=== PATIENT | male | born 1930 | race Caucasian/White ===

== ENCOUNTER 2016-11-06 20:44 | Inpatient (IN) | payer MEDICARE, BC ==
[~2016-11-06 20:44] MED LIST: SIMVASTATIN 10 MG TAB PO SCH
[2016-11-06 21:18] LABS: AUTOMATED BASOPHIL 0.9 % (0-2); AUTOMATED EOSINOPHIL 2.1 % (0-5); AUTOMATED LYMPH 10.8 % (17-44); AUTOMATED MONOCYTE 6.2 % (3-10); MPV 9.6 fL (7.4-10.4)
[2016-11-06 21:27] LABS: BLOOD UREA NITROGEN 24 MG/DL (9-20); CALC CORRECTED 9.4 MG/DL (8.4-10.2); CALCIUM 9.2 MG/DL (8.4-10.2); CALCULATED OSMOLALITY 278 MOs/Kg (270-290); CHLORIDE 106 mEq/L (98-107); GLUCOSE 122 MG/DL (70-99); SODIUM LEVEL 142 mEq/L (137-146); TOTAL PROTEIN 6.9 G/DL (6.3-8.2)
[2016-11-06 21:32] LABS: PARTIAL THROMB. TIME 27.2 SEC (22-35); PT-INR 1.2
[2016-11-06] MEDS ORDERED: NS 1,000 ML IV ONE (21:45)
--- NOTE | 2016-11-06 21:47 | EDPRACDOC ---
- General Information Chief Complaint: Chest Pain Stated Complaint: HEART ACTING UP ELEVATED BP SHOB NAUSEATED Time Seen by Provider: 11/06/16 21:39 Information Source: Patient Mode Of Arrival: Car Home Medications: Home Medications Ibuprofen Oral Suspension [Motrin] 200 mg PO HS 02/05/13 Lisinopril [Zestril] 20 mg PO BID 02/05/13 Nitroglycerin [Nitrostat] 0.3 mg SL Q5MX3 PRN 02/05/13 Omeprazole [Prilosec] 20 mg PO BID 02/05/13 Simvastatin [Zocor] 80 mg PO QHS 02/05/13 Alprazolam [Xanax] 2 mg PO TID PRN 05/25/16 Aspirin [Aspirin EC] 162 mg PO DAILY 05/25/16 Clopidogrel Bisulfate [Plavix] 75 mg PO DAILY 05/25/16 Isosorbide Mononitrate [Isosorbide Mononitrate ER] 60 mg PO DAILY 05/25/16 Ketoconazole [Nizoral] 1 kam TP BID 05/25/16 Nitrofurantoin [Macrobid] 100 mg PO BID #10 cap 05/25/16 Olopatadine HCl [Pataday] 1 drop OP DAILY 05/25/16 Allergies/Adverse Reactions: Allergies Allergy/AdvReac Type Severity Reaction Status Date / Time No Known Allergies Allergy Verified 05/25/16 13:12 - History of Present Illness Onset: 2 DAYS HPI: PT HAS HAD CP AND SOB FOR THE PAST 2 DAYS. PT HAS SEEN HIS PCP WHO PUT HIM ON ZITHROMAX AND FLONASE. THE PT SAID THAT HE HAS NOT GOTTEN ANY BETTER. Shortness of Breath: Moderate Relevant History: Reports: None Cough: Reports: Non-productive Rhinorrhea: Reports: None Ear Symptoms: Reports: None SOB Worsens with: Reports: Exertion SOB Improves with: Reports: Nothing Associated Signs and symptoms: Reports: Cough ED Past Medical History - Patient Medical History Cardiac History: Reports: Coronary Artery Disease, Hypertension, Heart Attack, CABG (1980-01 bypass--1989-12 bypass), Hypercholesterolemia GI/ History: Reports: Kidney Stones (x2 with surgery-last ones 3 years ago), Gastroesophageal Reflux Psychological History: Denies: Depression Systemic History: Reports: Cancer (PROSTATE) Surgical History: Reports: CABG (1980-01 bypass--1989-12 bypass), Other ( LITHOTRIPSY, PROSTATECTOMY) - Family Medical History Reports: Hypertension, Cardiac Disorders. Denies: Diabetes, Cancer, Stroke - Social Medical History Smoking Status: Former smoker ETOH: None Substance Abuse: None Lives In: Home EDM Review of Systems - Review of Systems ROS Negative Except as Marked: Yes All systems reviewed and were negative except as marked Respiratory: Shortness of Breath Cardiovascular: Chest Pain - Physical Exam Constitutional: Alert (Awake), No apparent distress Oriented to: Time, Person, Place Last recorded Vital Signs: Last Vital Signs Temp 98.5 F 11/06/16 20:59 Pulse 74 11/06/16 21:38 Resp 20 11/06/16 21:38 BP 172/76 11/06/16 21:38 Pulse Ox 90 L 11/06/16 21:38 Oxygen Pulse Oxygen Saturation 90 O2 Device Room Air Oxygen Flow Rate Fraction of Inspired Oxygen ( FIO2) - HEENT Head: Normal ( normocephalic) Eye Exam: Normal (PERRL, EOMI, Sclera white) Oropharynx: Normal (Pharynx:Moist without exudate,Gums-no swelling) ENT EAC: Normal TMJ: Normal Nose: No Symptoms Reported (septum midline) Neck: Normal (FROM, trachea at midline) - Respiratory/Cardiovascular Respiratory: Normal - CTA (BBS clear to auscultation without adventitious sounds ) Cardiovascular: Tachycardia, Irregular - GI Auscultation: Normal (NABS) Palpation: Normal (Soft,No rebound or guarding, non distended) Tenderness: Non tender Mike's Sign: Negative - Musculoskeletal Back: Normal (Non-Tender) Extremities: Normal (Normal tone, Pulses 2+ No cyanosis or edema, FROM) - Integumentary Skin: Normal, Warm, Dry Lymphatics: Normal (no adenopathy) - Neurologic Memory Impaired: Normal Motor Function: Normal (Normal tone, Pulses 2+ No cyanosis or edema, FROM) Cranial Nerve: Normal (CN II-X11 intact sensation, strength 5/5) Cerebellar: Normal Mood Description: Normal Perception: Normal ED SOB MDM - Results Result Diagrams: 11/06/16 21:06 11/06/16 21:06 Results: WBC 11.6 xk/uL (3.8-10.8) H 11/06/16 21:06 RBC 4.09 xM/uL (4.70-6.10) L 11/06/16 21:06 Hgb 12.3 g/dL (14.0-18.0) L 11/06/16 21:06 Hct 37.2 % (42-52) L 11/06/16 21:06 MCV 91 fL (80-94) 11/06/16 21:06 MCH 30.2 pg (27-32) 11/06/16 21:06 MCHC 33.1 g/dl (33-36) 11/06/16 21:06 RDW 13.3 % (11.5-14.5) 11/06/16 21:06 Plt Count 247 xk/uL (130-400) 11/06/16 21:06 MPV 9.6 fL (7.4-10.4) 11/06/16 21:06 Neut % (Auto) 80.0 % (45-76) H 11/06/16 21:06 Lymph % (Auto) 10.8 % (17-44) L 11/06/16 21:06 [place] % (Auto) 6.2 % (3-10) 11/06/16 21:06 Eos % (Auto) 2.1 % (0-5) 11/06/16 21:06 Baso % (Auto) 0.9 % (0-2) 11/06/16 21:06 Absolute Neuts (auto) 9.28 xk/uL (1.7-8.2) H 11/06/16 21:06 Absolute Lymphs (auto) 1.16 xk/uL (0.65-4.75) 11/06/16 21:06 PT 12.2 SEC (9.2-11.2) H 11/06/16 21:06 INR 1.2 11/06/16 21:06 APTT 27.2 SEC (22-35) 11/06/16 21:06 Sodium 142 mEq/L (137-146) 11/06/16 21:06 Potassium 3.7 mEq/L (3.5-5.1) 11/06/16 21:06 Chloride 106 mEq/L (98-107) 11/06/16 21:06 Carbon Dioxide 24 mMOL/L (22-33) 11/06/16 21:06 Anion Gap 16 mEq/L (8-16) 11/06/16 21:06 BUN 24 MG/DL (9-20) H 11/06/16 21:06 Creatinine 0.80 MG/DL (0.66-1.25) 11/06/16 21:06 Estimated GFR (MDRD) > 60 mL/min (>=60) 11/06/16 21:06 Glucose 122 MG/DL (70-99) H 11/06/16 21:06 Calculated Osmolality 278 MOs/Kg (270-290) 11/06/16 21:06 Calcium 9.2 MG/DL (8.4-10.2) 11/06/16 21:06 Corrected Calcium 9.4 MG/DL (8.4-10.2) 11/06/16 21:06 Total Bilirubin 0.5 MG/DL (0.2-1.3) 11/06/16 21:06 AST 36 IU/L (17-59) 11/06/16 21:06 ALT 45 IU/L (21-72) 11/06/16 21:06 Alkaline Phosphatase 85 IU/L (50-160) 11/06/16 21:06 Total Protein 6.9 G/DL (6.3-8.2) 11/06/16 21:06 Albumin 3.8 G/DL (3.5-5.0) 11/06/16 21:06 Lab Results 11/06/16 11/06/16 11/06/16 21:06 21:06 21:06 WBC 11.6 H RBC 4.09 L Hgb 12.3 L Hct 37.2 L MCV 91 MCH 30.2 MCHC 33.1 RDW 13.3 Plt Count 247 MPV 9.6 Neut % (Auto) 80.0 H Lymph % (Auto) 10.8 L [place] % (Auto) 6.2 Eos % (Auto) 2.1 Baso % (Auto) 0.9 Absolute Neuts (auto) 9.28 H Absolute Lymphs (auto) 1.16 PT 12.2 H INR 1.2 APTT 27.2 Sodium 142 Potassium 3.7 Chloride 106 Carbon Dioxide 24 Anion Gap 16 BUN 24 H Creatinine 0.80 Estimated GFR (MDRD) > 60 Glucose 122 H Calculated Osmolality 278 Calcium 9.2 Corrected Calcium 9.4 Total Bilirubin 0.5 AST 36 ALT 45 Alkaline Phosphatase 85 Total Protein 6.9 Albumin 3.8 - EKG EKG #1 EKG Time: 20:54 -: Yes EKG interpreted by me Rate: bpm: 100 Van: Normal Rhythm: Afib Block: None Hypertrophy: None ST: Normal - Diagnostic Imaging Chest Image interpreted by: Radiologist Diagnostic Imaging Comments: Evidence a degree of congestive heart failure. Synovial chondromatosis right shoulder. - Departure Yes I personally saw and evaluated the patient. Disposition: Admit IP To This Hospital Condition: Fair Final Diagnosis: CHF (congestive heart failure), Hypoxia Instructions: Chest Pain (ED), *Heart Failure (Activity, Diet, Worsening Symptoms, Weight Monitoring)(ED) Education/Counseling Given To: Patient Education/Counseling Given Regarding: Diagnosis, Treatment, Follow Up Decision to Admit Time: 22:17 Decision to admit date: 11/06/16 Decision to admit: from ED - Physician Consulted Hospitalist Provider Called: Sanjuana Jeffrey
[2016-11-06 21:54] LABS: ABG Draw Site Right Radial; ABG Draw Tech BKL; ALLEN'S TEST PASS; BEb 1.6 (+/- 2); TCO2 25.6 MMOL/L (23-27)
--- NOTE | 2016-11-06 22:11 | DIRPT ---
CLINICAL DATA: Shortness of breath and chest pain EXAM: PORTABLE CHEST 1 VIEW COMPARISON: March 16, 2005 FINDINGS: There is mild bibasilar interstitial edema, slightly more on the right than on the left, with small pleural effusions and mild cardiomegaly. The pulmonary vascularity is within normal limits. Patient is status post coronary artery bypass grafting. No adenopathy. 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 IMPRESSION: Evidence a degree of congestive heart failure. Synovial chondromatosis right shoulder. Electronically Signed By: Edgar Valdes III, M.D. On: 11/06/2016 22:09
[2016-11-06] MEDS ORDERED: FUROSEMIDE 40 MG/4 ML VIAL IV ONE (22:12)
--- NOTE | 2016-11-06 22:34 | HISTPHYS ---
- Chief Complaint Shortness of breath and chest pain over the past 2 days. - History of Present Illness PT HAS HAD CP AND SOB FOR THE PAST 2 DAYS. PT HAS SEEN HIS PCP WHO PUT HIM ON ZITHROMAX AND FLONASE. THE PT SAID THAT HE HAS NOT GOTTEN ANY BETTER. 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 He had a similar thing happen yesterday when he tried go up the [email or web address] steps twice and became very short of breath. On arrival to the emergency department he was in atrial fibrillation at 100 beats per minute but on his own has slowed down into the 70s. He has a history of coronary artery bypass graft x4 in 2000 and x3 29 years ago. He is followed by Dr. VALERO who he sees yearly. The patient states that he has recently been diagnosed with a kidney stone by Dr. SANZ although it is not particularly painful he is concerned and wants to move it along so he has been encouraged by his daughters in Dr. SANZ to drink a lot of extra fluid. He has been drinking 5-1/2 to 6 16 oz bottles of water a day for the past week. On presentation today his renal function is completely normal. Review of a CT of the chest abdomen pelvis from May of 2016 did not reveal any kidney stones. The patient states he has a history of making stones. I suspect that his increase fluid intake has caused him to develop a slight amount of congestive heart failure. His PO2 on presentation was 63 his pulse ox was 88%. He does not use Lasix at home but he was administered some Lasix here in the emergency department. Given his signs symptoms and findings patient will be admitted into the hospital for further evaluation and management of acute exacerbation of congestive heart failure. - Medical History Cardiac History: Reports: Coronary Artery Disease, Hypertension, Heart Attack, CABG (1980-01 bypass--1989-12 bypass), Hypercholesterolemia GI/ History: Reports: Kidney Stones (x2 with surgery-last ones 3 years ago; diagnosed with a kidney st last wk), Gastroesophageal Reflux Musculoskeletal History: Reports: No Significant History Systemic History: Reports: Cancer (PROSTATE) Psychological History: Denies: Depression - Surgical History Reports: CABG (1980-01 bypass--1989-12 bypass), Other (LITHOTRIPSY, PROSTATECTOMY) - Medictions/Allergies Allergies No Known Allergies Allergy (Verified 05/25/16 13:12) Current Medication List: Reviewed Home Medications Ibuprofen Oral Suspension [Motrin] 200 mg PO HS 02/05/13 Lisinopril [Zestril] 20 mg PO BID 02/05/13 Nitroglycerin [Nitrostat] 0.3 mg SL Q5MX3 PRN 02/05/13 Omeprazole [Prilosec] 20 mg PO BID 02/05/13 Simvastatin [Zocor] 80 mg PO QHS 02/05/13 Aspirin [Aspirin EC] 81 mg PO QHS 05/25/16 Clopidogrel Bisulfate [Plavix] 75 mg PO DAILY 05/25/16 Isosorbide Mononitrate [Isosorbide Mononitrate ER] 60 mg PO QHS 05/25/16 Olopatadine HCl [Pataday] 1 drop OU DAILY 05/25/16 Acetaminophen/Chlor-Mal [Coricidin HBP Cold & Flu Tab (325mg/2mg)] 1 - 2 tab PO Q4-6H PRN 11/06/16 Fluticasone Propionate [Flonase Nasal [place]] 1 spray SANDRA DAILY 11/06/16 - Family History Reports: Hypertension, Cardiac Disorders. Denies: Diabetes, Cancer, Stroke - Social History Travel Outside of [place] in the Last 3 Months?: No Lives: Alone Smoking Status: Former smoker Social History: Denies: Alcohol Use - Review of Systems Constitutional: No Symptoms Reported (No Fever, chills, wt loss/gain, diaphoresis,fatigue/malaise.) Eyes: No Symptoms Reported (No blurry vision, visual changes, eye pain, or eye redness.) Ears: No Symptoms Reported (No ear pain or discharge) Nose: No Symptoms Reported (No nasal discharge/congestion or bleeding) Mouth: No Symptoms Reported (No oropharyngeal lesions or erythema) Throat/Neck: No Symptoms Reported (No throat pain or swelling.No oropharyngeal lesions or erythema.) Respiratory: Shortness of Breath Cardiovascular: negative: Orthopnea, Palpitations, PND, Syncope Gastrointestinal: No Symptoms Reported (No abdominal pain, nausea, vomiting, diarrhea, constipation, or bloody stool.) Genitourinary: No Symptoms Reported (No dysuria or hematuria.) Neurological: No Symptoms Reported (No headache, dizziness, seizures, or focal weakness.) Musculoskeletal:: No Symptoms Reported Integumentary: No Symptoms Reported (no rashes or lesions) Allergic/Immunologic: No Symptoms Reported (no rashes or lesions) Hematologic: No Symptoms Reported (No chronic anemia, bleeding, or easy bruising.), Other (Lymphatics- no lymph node swelling or pain.) Endocrine: No Symptoms Reported (No thyroid issues, polyuria, or polydipsia.) Psychiatric: No Symptoms Reported (Fully oriented, with normal and appropriate affect.) - Physical Exam Vital Signs: Initial Vitals Temperature 98.5 F 11/06/16 20:59 Pulse Rate 118 11/06/16 20:59 Respiratory Rate 20 11/06/16 20:59 Blood Pressure 199/104 H 11/06/16 20:59 Pulse Oxygen Saturation 96 11/06/16 20:59 Constitutional: No apparent distress, Alert (Awake, Fully oriented. Normal and appropriate affect.Well appearing. Well nourished.), Well nourished, Well appearing Oriented to: Time, Person, Place - HEENT Head: Normal (normocephalic, atraumatic.), Other (No cervical lymphadenopathy. No supraclavicular lymphadenopathy. Neck: No palpable mass, supple , trachea midline.) Eye: Normal (pupils equal, reactive to light, and round; EOMI, Sclera white) Oropharynx: Normal (Pharynx: Moist without exudate,Gums-no swelling, No oropharyngeal lesions or erythema, Mucous membranes are dry.) Tympanic Membrane: Normal (no discharge) ENT EAC: Normal (No oropharyngeal lesions or erythema. Mucous membranes are dry. ) TMJ: Normal Nose: No Symptoms Reported (septum midline, Nares patent, without discharge or bleeding.) Respiratory: Rales. negative: Accessory Muscle Use, Diminished, Rhonchi, Wheezes Cardiovascular: Normal (RRR , Normal S1, S2. No murmurs, rubs, or gallops. PMI non-displaced. Carotids: no carotid bruits. No bradycardia or tachycardia. DP pulses 2+ bilaterally.) - GI Auscultation: Normal (normal active sounds) Palpation: Normal (Soft,non distended,nontender. No hepatosplenomegaly.) Tenderness: Non tender (No rebound or guarding) Mike's Sign: Negative - Musculoskeletal Back: Normal (Non-Tender) Extremities: Normal (Normal tone, DP pulses 2+ bilaterally, No cyanosis or edema bilaterally, FROM bilaterally.). negative: Edema - Integumentary Skin: Normal (Clean, dry, and intact. No rashes. No lesions.) Lymphatics: Normal (No cervical lymphadenopathy. No supraclavicular lymphadenopathy.) - Neurologic Memory Impaired: Normal Motor Function: Normal (Motor 5/5 throughout.Normal tone, Pulses 2+ No cyanosis or edema, FROM) Cranial Nerve: Normal (CN II-XII intact sensation, strength 5/5) Cerebellar: Normal (Babinski: toes downgoing bilaterally. Intact Finger to nose. Sensory grossly intact to light touch. Intact rapid alternating movements bilaterally. No pronator drift.) Mood Description: Normal (Fully oriented. Normal and appropriate affect.) Perception: Normal (Normal and appropriate affect.) - Focused CV Perfusion Exam Vital Signs: Last Vital Signs Temp 98.5 F 11/06/16 20:59 Pulse 72 11/06/16 22:06 Resp 22 11/06/16 22:06 BP 189/87 H 11/06/16 22:06 Pulse Ox 93 11/06/16 22:06 - Lab Results Laboratory Results - last 24 hr 11/06/16 11/06/16 11/06/16 21:06 21:06 21:06 WBC 11.6 H RBC 4.09 L Hgb 12.3 L Hct 37.2 L MCV 91 MCH 30.2 MCHC 33.1 RDW 13.3 Plt Count 247 MPV 9.6 Neut % (Auto) 80.0 H Lymph % (Auto) 10.8 L [place] % (Auto) 6.2 Eos % (Auto) 2.1 Baso % (Auto) 0.9 Absolute Neuts (auto) 9.28 H Absolute Lymphs (auto) 1.16 PT 12.2 H INR 1.2 APTT 27.2 Puncture Site pH pCO2 pO2 HCO3 Total CO2 Base Excess FiO2 % Specimen Drawn By Sodium 142 Potassium 3.7 Chloride 106 Carbon Dioxide 24 Anion Gap 16 BUN 24 H Creatinine 0.80 Estimated GFR (MDRD) > 60 Glucose 122 H Calculated Osmolality 278 Calcium 9.2 Corrected Calcium 9.4 Total Bilirubin 0.5 AST 36 ALT 45 Alkaline Phosphatase 85 Troponin I 0.08 [id number] Pept 3150 H Total Protein 6.9 Albumin 3.8 11/06/16 21:49 WBC RBC Hgb Hct MCV MCH MCHC RDW Plt Count MPV Neut % (Auto) Lymph % (Auto) [place] % (Auto) Eos % (Auto) Baso % (Auto) Absolute Neuts (auto) Absolute Lymphs (auto) PT INR APTT Puncture Site Right radial pH 7.480 H pCO2 33.0 L pO2 63.0 L HCO3 24.6 Total CO2 25.6 Base Excess 1.6 FiO2 % Ra Specimen Drawn By Bkl Sodium Potassium Chloride Carbon Dioxide Anion Gap BUN Creatinine Estimated GFR (MDRD) Glucose Calculated Osmolality Calcium Corrected Calcium Total Bilirubin AST ALT Alkaline Phosphatase Troponin I [id number] Pept Total Protein Albumin - Diagnostic Findings PORTABLE CHEST 1 VIEW COMPARISON: March 16, 2005 FINDINGS: There is mild bibasilar interstitial edema, slightly more on the right than on the left, with small pleural effusions and mild cardiomegaly. The pulmonary vascularity is within normal limits. Patient is status post coronary artery bypass grafting. No adenopathy. 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 IMPRESSION: Evidence a degree of congestive heart failure. Synovial chondromatosis right shoulder. Electronically Signed By: Edgar Valdes III, M.D. On: 11/06/2016 22:09 - Assessment (1) CHF (congestive heart failure) I50.9 - HEART FAILURE, UNSPECIFIED Acute Present on Admission: Yes Qualifiers: Congestive heart failure type: unspecified congestive heart failure type Congestive heart failure chronicity: acute Qualified Code(s): I50.9 - Heart failure, unspecified Patient with history of 2 prior CABGs. He now presents with signs and symptoms consistent with acute congestive heart failure. He will be admitted into the hospital received diuresis we will limit p.o. fluid intake. Will also rule out for myocardial infarction. (2) Atrial fibrillation I48.91 - UNSPECIFIED ATRIAL FIBRILLATION Chronic Present on Admission: Yes Qualifiers: Atrial fibrillation type: chronic Qualified Code(s): I48.2 - Chronic atrial fibrillation Continue present plans to get rate under control. (3) Hypoxia R09.02 - HYPOXEMIA Acute Present on Admission: Yes Likely related to acutely decompensated congestive heart failure. (4) Kidney stone N20.0 - CALCULUS OF KIDNEY Acute Present on Admission: Yes Patient was drinking a lot of water because of the kidney stone. He is currently not having any flank pain. He will cut back on his water use per my instructions. (5) Coronary artery disease I25.10 - ATHSCL HEART DISEASE OF [place] CORONARY ARTERY W/O ANG PCTRS Acute Present on Admission: Yes Qualifiers: Coronary Disease-Associated Artery/Lesion type: [place] artery [place] vs. transplanted heart: [place] heart Associated angina: without angina Qualified Code(s): I25.10 - Atherosclerotic heart disease of [place] coronary artery without angina pectoris Continue to provide supportive care continue medications for coronary disease. Case Care Discussed with: Patient, Family, Nursing Staff Total Time: 65 minutes Critical Care: No Couseling Time (>50% in counseling/coordination): No
[2016-11-06] MEDS ORDERED: Aluminum;Magnesium;Simethicone 30 ML UDC PO PRN (23:15)
[2016-11-06] MEDS ORDERED: MORPHINE 2 MG/ML INJECTION IV PRN (23:15)
[2016-11-06] MEDS ORDERED: ONDANSETRON HCL 4 MG/2 ML VIAL IV PRN (23:15)
[2016-11-06] MEDS ORDERED: MAGNESIUM HYDROXIDE 30 ML BOTTLE PO PRN (23:15)
[2016-11-06] MEDS ORDERED: Non-Formulary Medication ITEM (Omeprazole 20 MG) PO SCH (23:15)
[2016-11-06] MEDS ORDERED: ACETAMINOPHEN 325 MG/TAB TABLET PO PRN (23:15)
[2016-11-06] MEDS ORDERED: SODIUM CHLORIDE 0.9% 3 ML FLUSH FLUSH PRN (23:15)
[2016-11-06] MEDS ORDERED: ENOXAPARIN 40 MG/0.4 ML PFS SQ SCH (23:45)
[2016-11-06] MEDS ORDERED: Pharmacy Order Set Alert SCH (23:45)
[2016-11-06] MEDS ORDERED: Ibuprofen Oral Suspension 100 MG/5 ML UDC PO SCH (23:45)
[2016-11-07] MEDS ORDERED: KETOTIFEN FUMARATE 100 DROPS/5 ML BOTTLE OU SCH (00:30)
[2016-11-07] MEDS: PANTOPRAZOLE 40 MG TAB PO SCH ×3 (01:52→17:09)
[2016-11-07] MEDS: ISOSORBIDE MONONITRATE 60 MG TAB PO SCH ×2 (01:52→19:47)
[2016-11-07] MEDS: METOPROLOL TARTRATE 25 MG TAB PO SCH ×2 (01:52→07:52)
[2016-11-07] MEDS: LISINOPRIL 10 MG TAB PO SCH ×3 (01:53→19:47)
[2016-11-07] MEDS ORDERED: Vaccine Screening Complete SCH (02:00)
[2016-11-07] MEDS: NITROGLYCERINE 2 % OINTMENT PACK TOP SCH ×4 (03:00→17:09)
[2016-11-07 03:35] LABS: AUTOMATED BASOPHIL 0.8 % (0-2); AUTOMATED EOSINOPHIL 2.1 % (0-5); AUTOMATED LYMPH 10.1 % (17-44); AUTOMATED MONOCYTE 7.9 % (3-10); AUTOMATED NEUTROPHIL 79.1 % (45-76); MPV 9.5 fL (7.4-10.4)
[2016-11-07 03:40] LABS: BLOOD UREA NITROGEN 24 MG/DL (9-20); CALCIUM 9.1 MG/DL (8.4-10.2); CALCULATED OSMOLALITY 279 MOs/Kg (270-290); CHLORIDE 103 mEq/L (98-107); GLUCOSE 142 MG/DL (70-99); LDL (calc.) 46.8 MG/DL (<100); SODIUM LEVEL 142 mEq/L (137-146); VLDL (calc.) 10.2 MG/DL (5-40)
[2016-11-07] MEDS: SODIUM CHLORIDE 0.9% 3 ML FLUSH FLUSH SCH ×2 (07:35→17:09)
[2016-11-07] MEDS: POTASSIUM CHLORIDE 20 MEQ TAB PO SCH ×2 (07:50→17:09)
[2016-11-07] MEDS: FUROSEMIDE 40 MG/4 ML VIAL IV SCH ×2 (07:51→19:48)
[2016-11-07] MEDS: KETOTIFEN FUMARATE 100 DROPS/5 ML BOTTLE OU SCH ×2 (07:52→19:51)
[2016-11-07] MEDS: CLOPIDOGREL 75 MG TAB PO SCH (07:52)
[2016-11-07] MEDS ORDERED: OLOPATADINE HCL OU SCH (09:00)
--- NOTE | 2016-11-07 11:37 | PCM.CARDCO ---
Consultation Date: 11/07/16 Requesting Physician: Sanjuana Jeffrey [employer] Truck Operator: Vicente Medrano Consult Reason: CHF - History of Present Illness Patient is a pleasant 86-year-old male. I see him and take care of him on an outpatient basis. Does have coronary artery disease and has undergone CABG surgery twice. He mentions to me that he has problems with nephrolithiasis and is seeing his urologist for this. In view of this in the past couple of days he has been taking a lot of fluids to the point he thinks he was overdoing it. Came to the hospital with some shortness of breath and also shortness of breath on exertion. At the time my evaluation is alert awake oriented comfortable and in no distress. He was given diuretics and has urinated quite a bit and that he mentions has made him feel much better. No chest pain. Chief Complaint: Shortness of breath and chest pain over the past 2 days. - Past Medical and Surgical History Cardiac History: Reports: No Significant History, Coronary Artery Disease, Hypertension, Heart Attack, CABG (1980-01 bypass--1989-12 bypass), Hypercholesterolemia Respiratory History: Reports: No Significant History GI/ History: Reports: No Significant History, Kidney Stones (x2 with surgery- last ones 3 years ago; diagnosed with a kidney st last wk), Gastroesophageal Reflux Systemic History: Reports: No Significant History, Cancer (PROSTATE) Musculoskeletal History: Reports: No Significant History Psychological History: Reports: No Significant History. Denies: Depression, Alcoholism Neurological History: Reports: No Significant History Past Surgical History: Reports: No Significant History, CABG (1980-01 bypass-- 1989-12 bypass), Other (LITHOTRIPSY, PROSTATECTOMY) Allergies No Known Allergies Allergy (Verified 05/25/16 13:12) Home Medications Ibuprofen Oral Suspension [Motrin] 200 mg PO HS 02/05/13 Lisinopril [Zestril] 20 mg PO BID 02/05/13 Nitroglycerin [Nitrostat] 0.3 mg SL [id number] PRN 02/05/13 Omeprazole [Prilosec] 20 mg PO BID 02/05/13 Simvastatin [Zocor] 80 mg PO QHS 02/05/13 Aspirin [Aspirin EC] 81 mg PO QHS 05/25/16 Clopidogrel Bisulfate [Plavix] 75 mg PO DAILY 05/25/16 Isosorbide Mononitrate [Isosorbide Mononitrate ER] 60 mg PO QHS 05/25/16 Olopatadine HCl [Pataday] 1 drop OU DAILY 05/25/16 Acetaminophen/Chlor-Mal [Coricidin HBP Cold & Flu Tab (325mg/2mg)] 1 - 2 tab PO Q4-6H PRN 11/06/16 Fluticasone Propionate [Flonase Nasal [place]] 1 spray SANDRA DAILY 11/06/16 - Social History Travel Outside of [place] in the Last 3 Months?: No Lives: Alone Smoking Status: Former smoker Social History: Denies: Alcohol Use - Family History Reports: No Significant History, Hypertension, Cardiac Disorders. Denies: Diabetes, Cancer, Stroke - Review of Systems Constitutional: No Symptoms Reported (No Fever, chills, wt loss/gain, diaphoresis,fatigue/malaise.) - Physical Exam Constitutional: No apparent distress, Alert (Awake, Fully oriented. Normal and appropriate affect.Well appearing. Well nourished.), Well nourished, Well appearing Oriented to: Time, Person, Place Exam: Last Vital Signs Temp 98.2 F 11/07/16 09:06 Pulse 70 11/07/16 10:00 Resp 18 11/07/16 09:06 BP 127/60 11/07/16 09:06 Pulse Ox 95 11/07/16 10:10 Intake & Output 11/06/16 11/07/16 11/07/16 23:59 07:59 15:59 Intake Total 1000 Output Total 1750 1000 Balance -750 -1000 Patient's weight 77.706 kg - HEENT Head: Normal (normocephalic, atraumatic.), Other (No cervical lymphadenopathy. No supraclavicular lymphadenopathy. Neck: No palpable mass, supple , trachea midline.) Eye: Normal (pupils equal, reactive to light, and round; EOMI, Sclera white) Oropharynx: Normal (Pharynx: Moist without exudate,Gums-no swelling, No oropharyngeal lesions or erythema, Mucous membranes are dry.) Tympanic Membrane: Normal (no discharge) ENT EAC: Normal (No oropharyngeal lesions or erythema. Mucous membranes are dry. ) TMJ: Normal Nose: No Symptoms Reported (septum midline, Nares patent, without discharge or bleeding.) - Respiratory/Cardiovascular Respiratory: Normal - CTA (Lungs bilateral air entry and no crepitations at this point.). negative: Accessory Muscle Use, Diminished, Rhonchi, Wheezes Cardiovascular: Other (S1-S2 irregular 2/6 systolic murmur at the apex) - GI Auscultation: Normal (normal active sounds) Palpation: Normal (Soft,non distended,nontender. No hepatosplenomegaly.) Tenderness: Non tender (No rebound or guarding) - Musculoskeletal Back: Normal (Non-Tender) Extremities: Normal (Normal tone, DP pulses 2+ bilaterally, No cyanosis or edema bilaterally, FROM bilaterally.). negative: Edema - Integumentary Skin: Normal (Clean, dry, and intact. No rashes. No lesions.) Lymphatics: Normal (No cervical lymphadenopathy. No supraclavicular lymphadenopathy.) - Neurologic Memory Impaired: Normal Cerebellar: Normal (Babinski: toes downgoing bilaterally. Intact Finger to nose. Sensory grossly intact to light touch. Intact rapid alternating movements bilaterally. No pronator drift.) Mood Description: Normal (Fully oriented. Normal and appropriate affect.) Perception: Normal (Normal and appropriate affect.) - Other Exam Other Exam Findings: Abdomen nontender. No cyanosis clubbing or pedal edema on the extremity evaluation. Neurological and musculoskeletal examination nonfocal. - Assessment/Plan (1) CHF (congestive heart failure) I50.9 - HEART FAILURE, UNSPECIFIED Acute unspecified congestive heart failure type acute I50.9 - Heart failure, unspecified Comment: Patient's CHF has resolved. I think this is brought about by excessive fluid intake. I will review the echocardiogram. I will also cut down on his furosemide at this time. He has ambulated well and we will monitor him closely. CHF education was given. (2) Coronary artery disease I25.10 - ATHSCL HEART DISEASE OF [place] CORONARY ARTERY W/O ANG PCTRS Acute [place] artery [place] heart without angina I25.10 - Atherosclerotic heart disease of [place] coronary artery without angina pectoris Comment: Clinically stable at this time. Secondary prevention stressed at length. (3) Atrial flutter I48.92 - UNSPECIFIED ATRIAL FLUTTER Acute Comment: This is a new finding. His rates are well controlled with a beta-araceli. Echocardiogram will be assessed. I will also initiate him on anticoagulation. Benefits potential risks were explained to. I think he will be a good candidate for cardioversion in 4-6 weeks from now if he still remains in atrial flutter. Benefits and potential risks of anticoagulation explained and he vocalized understanding. Questions were answered to satisfaction. Case Care Discussed with: Patient
[2016-11-07] MEDS: APIXABAN 5 MG TABLET PO SCH ×2 (13:00→19:48)
--- NOTE | 2016-11-07 13:44 | DIRPT ---
CLINICAL DATA: Chest pain, cough, shortness breath x3 days. Elevated D-dimer and WBC. EXAM: CT ANGIOGRAPHY CHEST WITH CONTRAST TECHNIQUE: Multidetector CT imaging of the chest was performed using the standard protocol during bolus administration of intravenous contrast. Multiplanar CT image reconstructions and MIPs were obtained to evaluate the vascular anatomy. CONTRAST: 100 mL Isovue 370 IV COMPARISON: 05/25/2016 FINDINGS: Right arm IV contrast injection. Patent SVC. Mild right atrial enlargement with some reflux of contrast into the IVC. Dilated central pulmonary arteries suggesting pulmonary hypertension. Satisfactory opacification of pulmonary arteries noted, and there is no evidence of pulmonary emboli. Patent pulmonary veins. left atrial enlargement. Previous CABG. Adequate contrast opacification of the thoracic aorta with no evidence of dissection, aneurysm, or stenosis. There is classic 3-vessel brachiocephalic arch anatomy without proximal stenosis. Patchy calcified plaque in the aortic arch and descending thoracic aorta. Moderate right and smaller left pleural effusions. No pericardial effusion. Multiple subcentimeter prevascular, AP window, precarinal, and right paratracheal lymph nodes, none measuring greater than 1 cm short axis diameter. No hilar adenopathy. Interstitial thickening and associated ground-glass opacities in the right upper lobe suprahilar region and posterior segment, new since prior. Stable partially calcified subpleural granuloma, lateral right upper lobe image 48/602. Dependent atelectasis/consolidation posteriorly in both lower lobes. Spurring in the mid and lower thoracic spine. Visualized portions of upper abdomen unremarkable. Review of the MIP images confirms the above findings. IMPRESSION: 1. Negative for acute PE or thoracic aortic dissection. 2. Moderate pleural effusions right greater than left. 3. New right upper lobe interstitial and ground-glass infiltrate, possibly infectious/inflammatory or atypical edema but nonspecific. Consider follow-up to confirm appropriate resolution. Electronically Signed By: Cathy Mann M.D. On: 11/07/2016 13:41
--- NOTE | 2016-11-07 14:35 | CAPUECHO ---
INDICATION: HEART FAILURE HEIGHT: 172.7 cm (5 ft 8.0 in) WEIGHT: 74.8 kg (165.0 lbs) BP: 126/67 BSA: 1.060486 m MEASUREMENTS 2D RVIDd: 4.1 cm LVOT Diam: 2.0 cm IVSd: 1.0 cm LVIDd: 5.3 cm LVPWd: 1.0 cm LVIDs: 4.8 cm EF(Teich): 20.63 % LA Diam: 4.5 cm EF Biplane: 26.60 % LAESV MOD A4C: 98.3 ml LAESV MOD A2C: 88.0 ml LAESV Index (A-L): 59.10 ml/m M-MODE IVSd: 1.1 cm LVIDd: 6.2 cm LVPWd: 1.0 cm LVIDs: 5.0 cm EF(Teich): 40 % Ao Diam: 3.1 cm LA Diam: 4.6 cm DOPPLER MV E Carlos: 1.01 m/s MV A Carlos: 0.34 m/s MV PHT: 62.95 ms MVA By PHT: 3.50 cm LVOT Vmax: 0.62 m/s AV Vmax: 0.94 m/s CYNTHIA Vmax, Pt: 2.11 cm TR Vmax: 3.44 m/s TR maxP mmHg RVSP: 57.28 mmHg FINDINGS ------- Procedure:2D images, m-mode, color and spectral Doppler were obtained and reviewed. ECG rhythm:The rhythm appears to be atrial flutter. Study quality:This was a technically adequate study. Left Ventricle:The left ventricle is mildly dilated. Overall left ventricular systolic function is moderately impaired with, an EF between 35 - 40 %. Right Ventricle:The right ventricle is mildly enlarged. Left Atrium:The left atrium is mildly dilated. Right Atrium:The right atrium is mildly enlarged. Aortic Valve:The aortic valve is trileaflet and appears structurally normal. There is mild aortic valve sclerosis. Mitral Valve:Normal appearing mitral valve. Moderate mitral regurgitation is present. Tricuspid Valve:The tricuspid valve appears structurally normal. Moderate tricuspid regurgitation present. The right ventricular systolic pressure, as measured by Doppler, is 57 mmhg. Pulmonic Valve:The pulmonic valve is normal. Moderate pulmonic regurgitation. Aorta:The aortic root, ascending aorta and aortic arch appear normal. IVC:Normal inferior vena cava with normal inspiratory collapse. Pericardium:There is no pericardial effusion. Plueral effusion present. CONCLUSIONS 1. The rhythm appears to be atrial flutter. 2. The left ventricle is mildly dilated. 3. Overall left ventricular systolic function is moderately impaired with, an EF between 35 - 40 %. 4. The right ventricle is mildly enlarged. 5. The left atrium is mildly dilated. 6. The right atrium is mildly enlarged. 7. Moderate mitral regurgitation is present. 8. Moderate tricuspid regurgitation present. 9. The right ventricular systolic pressure, as measured by Doppler, is 57 mmhg. 10. Moderate pulmonic regurgitation. Electronically Signed By: Vicente Medrano MD -- Electronically Signed On: 14:35:14
--- NOTE | 2016-11-07 14:51 | GENMEDPROG ---
Chief Complaint: less sob dry cough recent rti on zpack not yet cleared Notes Reviewed: Yes Events from last night noted and discussed with Clinical Staff Current Medication List: Reviewed Currently: Reports: Cough (dry) DVT Prophylaxis: Yes - Physical Examination Vital Signs and I&O: Last Vital Signs Temp 98.5 F 11/07/16 12:00 Pulse 75 11/07/16 12:00 Resp 18 11/07/16 12:00 BP 130/67 11/07/16 12:00 Pulse Ox 95 11/07/16 12:00 Oxygen Pulse Oxygen Saturation 95 O2 Device Nasal Cannula Oxygen Flow Rate 2 Fraction of Inspired Oxygen ( FIO2) Intake & Output 11/04/16 11/05/16 11/06/16 11/07/16 23:59 23:59 23:59 23:59 Intake Total 1240 Output Total 3050 Balance -1810 Patient's weight 77.706 kg General: Alert, Oriented x3, No acute distress, Well appearing, Well nourished HEENT: Normal (Normocephalic, atraumatic;EOMI.Sclera white, Nares patent, without discharge or bleeding. No oropharyngeal lesions or erythema. Mucous membranes are dry.) Neck: Non-tender Lymphatics: Normal (No cervical lymphadenopathy. No supraclavicular lymphadenopathy.) Respiratory: Normal - CTA (Lungs bilateral air entry and no crepitations at this point.). negative: Accessory Muscle Use, Diminished, Rhonchi, Wheezes Cardiovascular: Regular rate and rhythm (No bradycardia or tachycardia), Normal S1, Normal S2, Murmurs, Good Pedal Pulses (DP pulses 2+ bilaterally) GI: Normal bowel sounds (normal active sounds), Soft (non-distended), Non tender , No hepatospenomegaly, No masses Extremities/Musculoskeletal: Normal pulses (DP pulses 2+ bilaterally) Skin: Warm,Dry and Intact, No rashes, No significant lesion Neurological: Strength at 5/5 X4 ext (Motor 5/5 throughout.), Normal tone, Cranial nerves 3-12 NL ( 2-12 grossly intact.) Psych/Mental Status: Appropriate, Normal Affect Lab/DI/Studies Reviewed: 11/07/16 03:10 11/07/16 03:10 Laboratory Results - last 24 hr 11/06/16 11/06/16 11/06/16 21:06 21:06 21:06 WBC 11.6 H RBC 4.09 L Hgb 12.3 L Hct 37.2 L MCV 91 MCH 30.2 MCHC 33.1 RDW 13.3 Plt Count 247 MPV 9.6 Neut % (Auto) 80.0 H Lymph % (Auto) 10.8 L [place] % (Auto) 6.2 Eos % (Auto) 2.1 Baso % (Auto) 0.9 Absolute Neuts (auto) 9.28 H Absolute Lymphs (auto) 1.16 PT 12.2 H INR 1.2 APTT 27.2 D-Dimer Quant (PE/DVT) Puncture Site pH pCO2 pO2 HCO3 Total CO2 Base Excess FiO2 % Specimen Drawn By Sodium 142 Potassium 3.7 Chloride 106 Carbon Dioxide 24 Anion Gap 16 BUN 24 H Creatinine 0.80 Estimated GFR (MDRD) > 60 Glucose 122 H Calculated Osmolality 278 Calcium 9.2 Corrected Calcium 9.4 Magnesium Total Bilirubin 0.5 AST 36 ALT 45 Alkaline Phosphatase 85 Troponin I 0.08 Myg-N-Enfksjztcsg Pept 3150 H Total Protein 6.9 Albumin 3.8 Triglycerides Cholesterol LDL Cholesterol, Calc VLDL Cholesterol, Calc HDL Cholesterol Cholesterol/HDL Ratio 11/06/16 11/06/16 11/07/16 21:06 21:49 01:00 WBC RBC Hgb Hct MCV MCH MCHC RDW Plt Count MPV Neut % (Auto) Lymph % (Auto) [place] % (Auto) Eos % (Auto) Baso % (Auto) Absolute Neuts (auto) Absolute Lymphs (auto) PT INR APTT D-Dimer Quant (PE/DVT) 824 H Puncture Site Right radial pH 7.480 H pCO2 33.0 L pO2 63.0 L HCO3 24.6 Total CO2 25.6 Base Excess 1.6 FiO2 % Ra Specimen Drawn By Bkl Sodium Potassium Chloride Carbon Dioxide Anion Gap BUN Creatinine Estimated GFR (MDRD) Glucose Calculated Osmolality Calcium Corrected Calcium Magnesium Total Bilirubin AST ALT Alkaline Phosphatase Troponin I 0.07 [id number]-F-Izurzfzvhlp Pept Total Protein Albumin Triglycerides Cholesterol LDL Cholesterol, Calc VLDL Cholesterol, Calc HDL Cholesterol Cholesterol/HDL Ratio 11/07/16 11/07/16 11/07/16 03:10 03:10 03:10 WBC 11.3 H RBC 3.67 L Hgb 11.3 L Hct 33.4 L MCV 91 MCH 30.8 MCHC 33.8 RDW 12.9 Plt Count 222 MPV 9.5 Neut % (Auto) 79.1 H Lymph % (Auto) 10.1 L [place] % (Auto) 7.9 Eos % (Auto) 2.1 Baso % (Auto) 0.8 Absolute Neuts (auto) 8.93 H Absolute Lymphs (auto) 1.13 PT INR APTT D-Dimer Quant (PE/DVT) Puncture Site pH pCO2 pO2 HCO3 Total CO2 Base Excess FiO2 % Specimen Drawn By Sodium 142 Potassium 3.6 Chloride 103 Carbon Dioxide 29 Anion Gap 14 BUN 24 H Creatinine 0.80 Estimated GFR (MDRD) > 60 Glucose 142 H Calculated Osmolality 279 Calcium 9.1 Corrected Calcium Magnesium 1.70 Total Bilirubin AST ALT Alkaline Phosphatase Troponin I 0.06 Qro-L-Thgkrgtbiii Pept Total Protein Albumin Triglycerides 51 Cholesterol 94 L LDL Cholesterol, Calc 46.8 VLDL Cholesterol, Calc 10.2 HDL Cholesterol 37.0 L Cholesterol/HDL Ratio 2.5 - Assessment (1) Pneumonia Acute J18.9 - PNEUMONIA, UNSPECIFIED ORGANISM Qualifiers: Pneumonia type: due to unspecified organism Laterality: right Lung location: upper lobe of lung Qualified Code(s): J18.1 - Lobar pneumonia, unspecified organism Comment/Plan: Get speech eval to consider aspiration as an etiology. Switch the Rocephin to Zosyn to cover anaerobes and continue Levaquin with probiotic. (2) Atrial flutter Acute I48.92 - UNSPECIFIED ATRIAL FLUTTER Qualifiers: Atrial flutter type: typical Qualified Code(s): I48.3 - Typical atrial flutter Comment/Plan: Rate control is necessary. Blood pressure heart rate much better on carvedilol. (3) CHF (congestive heart failure) Acute I50.9 - HEART FAILURE, UNSPECIFIED Qualifiers: Congestive heart failure type: combined Congestive heart failure chronicity : acute Qualified Code(s): I50.41 - Acute combined systolic (congestive) and diastolic (congestive) heart failure Comment/Plan: Patient with history of 2 prior CABGs. He now presents with signs and symptoms consistent with acute congestive heart failure. He will be admitted into the hospital received diuresis we will limit p.o. fluid intake. Will also rule out for myocardial infarction. (4) Coronary artery disease Acute I25.10 - ATHSCL HEART DISEASE OF [place] CORONARY ARTERY W/O ANG PCTRS Qualifiers: Coronary Disease-Associated Artery/Lesion type: [place] artery [place] vs. transplanted heart: [place] heart Associated angina: without angina Qualified Code(s): I25.10 - Atherosclerotic heart disease of [place] coronary artery without angina pectoris Comment/Plan: Continue to provide supportive care continue medications for coronary disease. (5) Hypoxia Acute R09.02 - HYPOXEMIA Comment/Plan: Likely related to acutely decompensated congestive heart failure. (6) Kidney stone Acute N20.0 - CALCULUS OF KIDNEY Comment/Plan: Patient was drinking a lot of water because of the kidney stone. He is currently not having any flank pain. He will cut back on his water use per my instructions. Case Care Discussed with: Patient Education/Counseling Given To: Patient Education/Counseling Given Regarding: Diagnosis Total Time: 39 minutes Critical Care: No Code: 83954 (12+)
[2016-11-07] MEDS ORDERED: CEFTRIAXONE 1 GM in D5W 100 ML IV SCH (16:00)
[2016-11-07] MEDS ORDERED: Levofloxacin 750 mg/150 ml D5W 750 MG/150 ML RTU IV SCH (18:00)
[2016-11-07] MEDS: PROBIOTIC BLEND TAB PO SCH (19:47)
[2016-11-07] MEDS: CARVEDILOL 6.25 MG TAB PO SCH (19:48)
[2016-11-07] MEDS ORDERED: SIMVASTATIN 80 MG TAB PO SCH (21:00)
[2016-11-08] MEDS: NITROGLYCERINE 2 % OINTMENT PACK TOP SCH ×2 (00:32→05:51)
[2016-11-08 03:43] VITALS: BMI 24.3
[2016-11-08] MEDS: PANTOPRAZOLE 40 MG TAB PO SCH (05:51)
[2016-11-08] MEDS: SODIUM CHLORIDE 0.9% 3 ML FLUSH FLUSH SCH (05:52)
[2016-11-08 07:56] VITALS: BP 161/77; PULSE 73; TEMP 98.7
--- NOTE | 2016-11-08 08:40 | PCM.DCS92 ---
[id number]: Yes due to unspecified organism right upper lobe of lung J18.1 - Lobar pneumonia, unspecified organism Comment: Get speech eval to consider aspiration as an etiology. Switch the Rocephin to Augmentin to cover anaerobes and continue Levaquin with probiotic. (2) Atrial flutter Acute I48.92 - UNSPECIFIED ATRIAL FLUTTER Present on Admission: Yes typical I48.3 - Typical atrial flutter Comment: Rate control is necessary. Blood pressure heart rate much better on carvedilol. (3) CHF (congestive heart failure) Acute I50.9 - HEART FAILURE, UNSPECIFIED Present on Admission: Yes combined acute I50.41 - Acute combined systolic (congestive) and diastolic (congestive) heart failure Comment: Patient with history of 2 prior CABGs. He now presents with signs and symptoms consistent with acute congestive heart failure. He will be admitted into the hospital received diuresis we will limit p.o. fluid intake. Will also rule out for myocardial infarction. (4) Coronary artery disease Acute I25.10 - ATHSCL HEART DISEASE OF [place] CORONARY ARTERY W/O ANG PCTRS Present on Admission: Yes [place] artery [place] heart without angina I25.10 - Atherosclerotic heart disease of [place] coronary artery without angina pectoris Comment: Continue to provide supportive care continue medications for coronary disease. (5) Hypoxia Acute R09.02 - HYPOXEMIA Present on Admission: Yes Comment: Likely related to acutely decompensated congestive heart failure. (6) Kidney stone Acute N20.0 - CALCULUS OF KIDNEY Present on Admission: Yes Comment: Patient was drinking a lot of water because of the kidney stone. He is currently not having any flank pain. He will cut back on his water use per my instructions. Discharge Disposition: Discharge w/ Home Health Discharge Condition: Improved Cognitive Discharge Status: Unimpaired Fuctional Discharge Status: Independent Physician Follow up/Referrals: Guicho Ramos MD [Primary Care Provider] - Hospital to call w/ appt. Home Medications / New Prescriptions: New Carvedilol [Coreg] 6.25 mg PO BID #60 tablet Probiotic Blend [Rosa Q] 1 tab PO BIDLS #30 tablet Continue Nitroglycerin [Nitrostat] 0.3 mg SL Q5MX3 PRN PRN Reason: Chest Pain Or Discomfort Simvastatin [Zocor] 80 mg PO QHS Omeprazole [Prilosec] 20 mg PO BID Lisinopril [Zestril] 20 mg PO BID Isosorbide Mononitrate [Isosorbide Mononitrate ER] 60 mg PO QHS Olopatadine HCl [Pataday] 1 drop OU DAILY Fluticasone Propionate [Flonase] 1 spray SANDRA DAILY Apixaban [Eliquis] 5 mg PO BID #60 tablet Discontinued Ibuprofen Oral Suspension [Motrin] 200 mg PO HS Discharge Home Medication List Lisinopril [Zestril] 20 mg PO BID 02/05/13 [History Confirmed 11/06/16 Last Taken 11/06/16] Nitroglycerin [Nitrostat] 0.3 mg SL Q5MX3 PRN 02/05/13 [History Confirmed Last Taken Unknown] Omeprazole [Prilosec] 20 mg PO BID 02/05/13 [History Confirmed 11/06/16 Last Taken 11/06/16] Simvastatin [Zocor] 80 mg PO QHS 02/05/13 [History Confirmed 11/06/16 Last Taken 11/05/16] Aspirin [Aspirin EC] 81 mg PO QHS 05/25/16 [History Confirmed 11/06/16 Last Taken 11/05/16] Clopidogrel Bisulfate [Plavix] 75 mg PO DAILY 05/25/16 [History Confirmed Last Taken 11/06/16] Isosorbide Mononitrate [Isosorbide Mononitrate ER] 60 mg PO QHS 05/25/16 [ History Confirmed 11/06/16 Last Taken 11/05/16] Olopatadine HCl [Pataday] 1 drop OU DAILY 05/25/16 [History Confirmed 11/06/16 Last Taken 11/06/16] Acetaminophen/Chlor-Mal [Coricidin HBP Cold & Flu Tab (325mg/2mg)] 1 - 2 tab PO Q4-6H PRN 11/06/16 [History Confirmed 11/06/16 Last Taken 11/05/16] Fluticasone Propionate [Flonase] 1 spray SANDRA DAILY 11/06/16 [History Confirmed 11/06/16 Last Taken 11/06/16] Amoxicillin/Potassium Clav [Augmentin 875-125 Tablet] 1 each PO BID #10 tablet 11/08/16 [Rx Last Taken Unknown] Apixaban [Eliquis] 5 mg PO BID #60 tablet 11/08/16 [Rx Last Taken Unknown] Carvedilol [Coreg] 6.25 mg PO BID #60 tablet 11/08/16 [Rx Last Taken Unknown] Probiotic Blend [Rosa Q] 1 tab PO BIDLS #30 tablet 11/08/16 [Rx Last Taken Unknown] 11/07/16 03:10 11/07/16 03:10 O2 Device: Nasal Cannula Oxygen to be used after Discharge: Continuous Additional Instructions: 2gm sodiun diet and card rehab Diet at Discharge: Cardiac, Heart Healthy Activity: As Tolerated - DC Summary Notes HPI/Notes: Patient is a pleasant 86-year-old male. I see him and take care of him on an outpatient basis. Does have coronary artery disease and has undergone CABG surgery twice. He mentions to me that he has problems with nephrolithiasis and is seeing his urologist for this. In view of this in the past couple of days he has been taking a lot of fluids to the point he thinks he was overdoing it. Came to the hospital with some shortness of breath and also shortness of breath on exertion. At the time my evaluation is alert awake oriented comfortable and in no distress. He was given diuretics and has urinated quite a bit and that he mentions has made him feel much better. No chest pain. Hospital Course Note:: Discharge summary on patient named DARY JONES admitted to [facility] on 11/06/16 by Sanjuana Jeffrey MD. Date of discharge is 11/08/2016. He was admitted with symptoms of congestive heart failure and was diuresed during hospitalization. CT of the chest showed evidence of right upper lobe pneumonia and patient was placed on IV antibiotics consisting of Zosyn and Levaquin. He tolerated the antibiotics well and was felt ready for discharge today. He will continue p.o. antibiotics as stated above and follow up with his primary care provider Dr. Ramos and Dr. eMdrano. Since he had atrial flutter on admission and other risk factors including age it was felt that he should continue on the Eliquis started in hospital. He was instructed to go by Cardiology office to product picker some free samples of the Eliquis. CC: Dr. Richard Medrano Total Time: 42 min Code: 60019 (>30min.) - Physical Exam Vital Signs: Last Vital Signs Temp 98.7 F 11/08/16 07:50 Pulse 73 11/08/16 07:50 Resp 20 11/08/16 07:50 BP 161/77 11/08/16 07:50 Pulse Ox 92 11/08/16 07:50 Oxygen Pulse Oxygen Saturation 92 O2 Device Nasal Cannula Oxygen Flow Rate 2 Fraction of Inspired Oxygen ( FIO2) Constitutional: No apparent distress, Alert (Awake, Fully oriented. Normal and appropriate affect.Well appearing. Well nourished.), Well nourished, Well appearing Oriented to: Time, Person, Place - HEENT Head: Normal (normocephalic, atraumatic.), Other (No cervical lymphadenopathy. No supraclavicular lymphadenopathy. Neck: No palpable mass, supple , trachea midline.) Eye: Normal (pupils equal, reactive to light, and round; EOMI, Sclera white) Oropharynx: Normal (Pharynx: Moist without exudate,Gums-no swelling, No oropharyngeal lesions or erythema, Mucous membranes are dry.) ENT EAC: Normal (No oropharyngeal lesions or erythema. Mucous membranes are dry. ) TMJ: Normal Nose: No Symptoms Reported (septum midline, Nares patent, without discharge or bleeding.) - Respiratory/Cardiovascular Respiratory: Normal - CTA (Lungs bilateral air entry and no crepitations at this point.). negative: Accessory Muscle Use, Diminished, Rhonchi, Wheezes Cardiovascular: Normal (RRR , Normal S1, S2. No murmurs, rubs, or gallops. PMI non-displaced. Carotids: no carotid bruits. No bradycardia or tachycardia. DP pulses 2+ bilaterally.) - GI Auscultation: Normal (normal active sounds) Palpation: Normal (Soft,non distended,nontender. No hepatosplenomegaly.) Tenderness: Non tender (No rebound or guarding) Mike's Sign: Negative - Musculoskeletal Back: Normal (Non-Tender) Extremities: Normal (Normal tone, DP pulses 2+ bilaterally, No cyanosis or edema bilaterally, FROM bilaterally.). negative: Edema - Integumentary Skin: Normal (Warm dry no rashes) Lymphatics: Normal (No cervical lymphadenopathy. No supraclavicular lymphadenopathy.) - Neurologic Memory Impaired: Normal Motor Function: Normal (Motor 5/5 throughout.Normal tone, Pulses 2+ No cyanosis or edema, FROM) Cranial Nerve: Normal (CN II-XII intact sensation, strength 5/5) Cerebellar: Normal (Babinski: toes downgoing bilaterally. Intact Finger to nose. Sensory grossly intact to light touch. Intact rapid alternating movements bilaterally. No pronator drift.) Mood Description: Normal (Fully oriented. Normal and appropriate affect.) Thought: Coherent Perception: Normal (Normal and appropriate affect.)
--- NOTE | 2016-11-08 08:43 | CAPUEKG ---
[place], [place] Test Date: 2016-11-07 Pat Name: DARY JONES Department: Room: 434 Gender: Male Twister Hand: : Requested By: Order Number: Reading MD: Vicente Medrano MD Measurements Intervals [place] Rate: 71 P: -84 [place]: QRS: -30 QRSD: 156 T: 37 QT: 490 QTc: 532 Interpretive Statements Atrial flutter with 4:1 AV conduction Left axis deviation Right bundle branch block Abnormal ECG Electronically Signed On 11-08-16 08:42:38 EST by Vicente Medrano MD <[email or web address]> [id number]
--- NOTE | 2016-11-08 08:44 | CAPUEKG ---
[place], [place] Test Date: 2016-11-07 Pat Name: DARY JONES Department: Room: 434 Gender: Male On Site Manager: YAZAN : Requested By: Order Number: Reading MD: Vicente Medrano MD Measurements Intervals [place] Rate: 71 P: -85 [place]: QRS: -43 QRSD: 152 T: 29 QT: 478 QTc: 519 Interpretive Statements Atrial flutter with 4:1 AV conduction Left axis deviation Right bundle branch block Abnormal ECG Electronically Signed On 11-08-16 08:43:08 EST by Viecnte Medrano MD <[id number]> [id number]
[2016-11-08] MEDS ORDERED: FUROSEMIDE 40 MG/4 ML VIAL IV SCH (09:00)
[2016-11-08] MEDS: APIXABAN 5 MG TABLET PO SCH (09:15)
[2016-11-08] MEDS: CARVEDILOL 6.25 MG TAB PO SCH (09:16)
[2016-11-08] MEDS: FUROSEMIDE 40 MG/4 ML VIAL IV SCH (09:16)
[2016-11-08] MEDS: KETOTIFEN FUMARATE 100 DROPS/5 ML BOTTLE OU SCH (09:16)
[2016-11-08] MEDS: LISINOPRIL 10 MG TAB PO SCH (09:17)
[2016-11-08] MEDS: CLOPIDOGREL 75 MG TAB PO SCH (09:17)
[2016-11-08] MEDS: PROBIOTIC BLEND TAB PO SCH (09:17)
[2016-11-08] MEDS: POTASSIUM CHLORIDE 20 MEQ TAB PO SCH (09:23)
--- NOTE | 2016-11-08 09:24 | PCM.CARD ---
- Subjective Current Assessment: No New Symptoms (Patient mentions to me that he feels much better. He has ambulated without much of a problem.) Vital Signs: Last Vital Signs Temp 98.7 F 11/08/16 07:50 Pulse 73 11/08/16 07:50 Resp 20 11/08/16 07:50 BP 161/77 11/08/16 07:50 Pulse Ox 93 11/08/16 09:04 EKG Rhythm: Atrial Flutter Heart Sounds: S1 & S2 (Heart sounds irregular lungs bilateral air entry no pedal edema. Heart rate is within normal limits.) - Assessment/Plan (1) CHF (congestive heart failure) Acute I50.9 - HEART FAILURE, UNSPECIFIED Present on Admission: Yes combined acute I50.41 - Acute combined systolic (congestive) and diastolic (congestive) heart failure Comment/Plan: This has improved much. CHF education was given to the patient. I mentioned to the patient to be cautious about fluid intake. He vocalized understanding. He will be seen by me in the office in the next few days from follow-up appointment. He mentions to me that he has already an appointment scheduled from before any will keep it. (2) Coronary artery disease Acute I25.10 - ATHSCL HEART DISEASE OF [place] CORONARY ARTERY W/O ANG PCTRS Present on Admission: Yes [place] artery [place] heart without angina I25.10 - Atherosclerotic heart disease of [place] coronary artery without angina pectoris Comment/Plan: Clinically stable and asymptomatic at this point (3) Atrial flutter Acute I48.92 - UNSPECIFIED ATRIAL FLUTTER Present on Admission: Yes typical I48.3 - Typical atrial flutter Comment/Plan: Heart rate is stable. Patient will be now on anticoagulation. Prescription will be given by the hospitalist service. He will come back in the morning to the office to get some samples if we have any. He will be followed up in office appointment and I will consider him for cardioversion in about 4-6 weeks from now.
== END 2016-11-08 10:10 | disposition home health service (06) | DRG 291 ==
LOC: ED 20:44 → PCU 23:15
PROVIDERS: ADMIT Hospitalist; ATTEND Internal Medicine
PROC: 039B3ZZ Drainage of Right Radial Artery, Percutaneous Approach (ICD-10-PCS; principal; 2016-11-06)
DX: I11.0 Hypertensive heart disease with heart failure (principal); J18.1 Lobar pneumonia, unspecified organism; I48.3 Typical atrial flutter; Z95.1 Presence of aortocoronary bypass graft; R09.02 Hypoxemia; I50.43 Acute on chronic combined systolic (congestive) and diastolic (congestive) heart failure; N20.0 Calculus of kidney; I25.10 Atherosclerotic heart disease of native coronary artery without angina pectoris; I25.2 Old myocardial infarction; E78.00 Pure hypercholesterolemia, unspecified; K21.9 Gastro-esophageal reflux disease without esophagitis; Z87.891 Personal history of nicotine dependence; Z79.82 Long term (current) use of aspirin; Z79.899 Other long term (current) drug therapy
CPT/HCPCS: 36415; 36600; 71010; 71275; 80048; 80053; 80061; 82803; 83735; 83880; 84484; 85025; 85379; 85610; 85730; 87040; 87086; 92523; 93005; 93306; 96361; 96372; 96374; 97161; 99284; A9698; G0237; J0696; J1650; J1940; J1956; J3490; J7060

== ENCOUNTER 2016-11-09 09:41 | Emergency (ER) | payer MEDICARE, BC ==
[2016-11-09 09:51] VITALS: TEMP 97.5; BMI 25.7
[2016-11-09 10:04] LABS: AUTOMATED BASOPHIL 0.9 % (0-2); AUTOMATED EOSINOPHIL 4.5 % (0-5); AUTOMATED LYMPH 9.6 % (17-44); AUTOMATED MONOCYTE 6.7 % (3-10); AUTOMATED NEUTROPHIL 78.3 % (45-76)
[2016-11-09 10:09] LABS: RBC/URINE TNTC (0-2)
[2016-11-09 10:10] LABS: LEUKOCYTES/URINE NEG (NEGATIVE); NITRITE/URINE NEG (NEGATIVE); URINE OCCULT BLOOD 3+ (NEG/TRACE)
[2016-11-09 10:17] LABS: PARTIAL THROMB. TIME 28.9 SEC (22-35); PT-INR 1.2
[2016-11-09 10:43] LABS: BLOOD UREA NITROGEN 35 MG/DL (9-20); CALC CORRECTED 9.1 MG/DL (8.4-10.2); CALCIUM 8.8 MG/DL (8.4-10.2); CALCULATED OSMOLALITY 283 MOs/Kg (270-290); CHLORIDE 103 mEq/L (98-107); GLUCOSE 167 MG/DL (70-99); SODIUM LEVEL 141 mEq/L (137-146); TOTAL PROTEIN 6.9 G/DL (6.3-8.2)
--- NOTE | 2016-11-09 10:59 | EDPRACDOC ---
<ValenzuelaAlexandra - Last Filed: 11/09/16 13:07> - General Information Information Source: Patient - History of Present Illness HPI: PT PRESENTS TO ED WITH HEMATURIA STATES HE WAS RECENTLY ADMITTED TO THE HOSPITAL FOR CHF AND AFLUTTER AND WAS STARTED ON ELIQUIS, HE ALSO STATES THAT HE HAS HAD ISSUES WITH KIDNEY STONES IN THE PAST AND HAD RECENT CHECK UP WITH AND TOLD MOST STONES WERE GONE BUT STILL HAD A SMALL SLIVER ON THE LEFT SIDE. PT IS NOT HAVING ANY PAIN N/V OR INCREASED SOB. BUT WAS HAVING BRIGHT RED BLOOD IN URINE THIS AM. Onset: THIS AM Urinary Pain Location: Reports: None Symptom Onset: Reports: Spontaneous (RECENT STARTING ELIQUIS BUT ALSO HAS H/O KIDNEY STONES.) Pain Severity: None History of: Reports: Kidney Stone Oral Intake: Normal Urinary Output: Normal Associated Signs and Symptoms: Reports: None <Jessica Larkin - Last Filed: 11/09/16 13:28> - General Information Chief Complaint: Male Urogenital Problems Stated Complaint: URINARY PROBLEM (BLOOD) Time Seen by Provider: 11/09/16 10:31 Home Medications: Home Medications Lisinopril [Zestril] 20 mg PO BID 02/05/13 Nitroglycerin [Nitrostat] 0.3 mg SL Q5MX3 PRN 02/05/13 Omeprazole [Prilosec] 20 mg PO BID 02/05/13 Simvastatin [Zocor] 80 mg PO QHS 02/05/13 Aspirin [Aspirin EC] 81 mg PO QHS 05/25/16 Clopidogrel Bisulfate [Plavix] 75 mg PO DAILY 05/25/16 Isosorbide Mononitrate [Isosorbide Mononitrate ER] 60 mg PO QHS 05/25/16 Olopatadine HCl [Pataday] 1 drop OU DAILY 05/25/16 Acetaminophen/Chlor-Mal [Coricidin HBP Cold & Flu Tab (325mg/2mg)] 1 - 2 tab PO Q4-6H PRN 11/06/16 Fluticasone Propionate [Flonase] 1 spray SANDRA DAILY 11/06/16 Amoxicillin/Potassium Clav [Augmentin 875-125 Tablet] 1 each PO BID #10 tablet 11/08/16 Carvedilol [Coreg] 6.25 mg PO BID #60 tablet 11/08/16 Probiotic Blend [Rosa Q] 1 tab PO BIDLS #30 tablet 11/08/16 Allergies/Adverse Reactions: Allergies Allergy/AdvReac Type Severity Reaction Status Date / Time No Known Allergies Allergy Verified 11/09/16 09:50 ED Past Medical History - History Reviewed Yes Nurses notes reviewed and agree except as marked Travel Outside of [place] in the Last 3 Months?: No - Patient Medical History Cardiac History: Reports: Coronary Artery Disease, Hypertension, Congestive Heart Failure, Heart Attack, 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 Denies: Diabetes, Cancer, Stroke - Social Medical History Smoking Status: Never smoker Social History: Denies: Substance Use Disorder ETOH: None Substance Abuse: None Lives With: Other Lives In: Home <Jessica Larkin - Last Filed: 11/09/16 13:28> EDM Review of Systems - Review of Systems ROS Negative Except as Marked: Yes All systems reviewed and were negative except as marked Constitutional: No Symptoms Reported. negative: Fever, Chills, Weakness, Fatigue, Loss of Appetite Eyes: No Symptoms Reported. negative: Redness, Blurred Vision, Double Vision, Discharge, Pain, Light Sensitive, Photophobia Ears: No Symptoms Reported. negative: Pain, Hearing Loss, Drainage, Ear Pulling Throat: No Symptoms Reported. negative: Pain, Swelling Nose: No Symptoms Reported. negative: Congestion, Bleeding, Discharge, Injection, Swelling, Deformity, Ecchymosis, Tender, Abrasion, Laceration Mouth: No Symptoms Reported. negative: Pain, Drooling Respiratory: No Symptoms Reported. negative: Cough, Brassy Cough, Barky Cough, Shortness of Breath, Wheezing, Hemoptysis Cardiovascular: No Symptoms Reported. negative: Chest Pain, Palpitations, Syncope, Edema, Orthopnea, PND, Skin Mottling, Cyanosis Gastrointestinal: No Symptoms Reported. negative: Pain, Constipation, Nausea, Vomiting, Diarrhea, Melena, Formula Intolerance Genitourinary: Hematuria. negative: Bleeding, Dysuria, Discharge, Frequency, , Testicular Pain Neurological: No Symptoms Reported. negative: Headache, Dizziness, Seizure, Numbness, Weakness, Speech Difficulty, Gait Difficulty Musculoskeletal: No Symptoms Reported. negative: Neck, Chestwall, Ribs, Back, Shoulder, Arm, Elbow, Forearm, Wrist, Hand, Pelvis, Hip, Femur, Knee, Leg, Ankle , Foot Integumentary: No Symptoms Reported. negative: Itching, Rash, Bruising, Wound Allergic/Immunologic: No Symptoms Reported. negative: Hives, Itching Hematologic: No Symptoms Reported. negative: Lymphadenopathy, Easy Bruising, Easy Bleeding Endocrine: No Symptoms Reported. negative: Weight Gain, Weight Loss Psychiatric: No Symptoms Reported. negative: Anxiety, Depression, Hallucinations, Insomnia, Suicidal <Jessica Larkin - Last Filed: 11/09/16 13:28> - Physical Exam Last recorded Vital Signs: Last Vital Signs Temp 97.5 F 11/09/16 09:45 Pulse 71 11/09/16 09:45 Resp 18 11/09/16 09:45 BP 130/60 11/09/16 09:45 Pulse Ox 97 11/09/16 09:45 Oxygen Pulse Oxygen Saturation 97 O2 Device Nasal Cannula Oxygen Flow Rate 2 Fraction of Inspired Oxygen ( FIO2) <Alexandra Valenzuela - Last Filed: 11/09/16 13:07> - Physical Exam Constitutional: Alert (Awake), No apparent distress Oriented to: Time, Person, Place Last recorded Vital Signs: Last Vital Signs Temp 97.5 F 11/09/16 09:45 Pulse 71 11/09/16 09:45 Resp 18 11/09/16 09:45 BP 130/60 11/09/16 09:45 Pulse Ox 97 11/09/16 09:45 Oxygen Pulse Oxygen Saturation 97 O2 Device Nasal Cannula Oxygen Flow Rate 2 Fraction of Inspired Oxygen ( FIO2) - HEENT Head: Normal ( normocephalic) Eye Exam: Normal (PERRL, EOMI, Sclera white) Oropharynx: Normal (Pharynx:Moist without exudate,Gums-no swelling) Tympanic Membrane: Normal ENT EAC: Normal TMJ: Normal Nose: No Symptoms Reported (septum midline) Neck: Normal (FROM, trachea at midline) - Respiratory/Cardiovascular Respiratory: Normal - CTA (BBS clear to auscultation without adventitious sounds ) Cardiovascular: Normal (RRR without murmur, gallop or rub) - GI Auscultation: Normal (NABS) Palpation: Normal (Soft,No rebound or guarding, non distended) Tenderness: Non tender Mike's Sign: Negative Rectal Exam: Heme negative stool - Musculoskeletal Back: Normal (Non-Tender) Extremities: Normal (Normal tone, Pulses 2+ No cyanosis or edema, FROM) - Integumentary Skin: Normal, Warm, Dry Lymphatics: Normal (no adenopathy) - Neurologic Memory Impaired: Normal Motor Function: Normal (Normal tone, Pulses 2+ No cyanosis or edema, FROM) Cranial Nerve: Normal (CN II-X11 intact sensation, strength 5/5) Cerebellar: Normal Mood Description: Normal Perception: Normal <Jessica Larkin - Last Filed: 11/09/16 13:28> - Results 11/09/16 09:55 11/09/16 09:55 WBC 8.6 xk/uL (3.8-10.8) 11/09/16 09:55 RBC 4.20 xM/uL (4.70-6.10) L 11/09/16 09:55 Hgb 13.0 g/dL (14.0-18.0) L D 11/09/16 09:55 Hct 38.5 % (42-52) L 11/09/16 09:55 MCV 92 fL (80-94) 11/09/16 09:55 MCH 30.9 pg (27-32) 11/09/16 09:55 MCHC 33.7 g/dl (33-36) 11/09/16 09:55 RDW 13.1 % (11.5-14.5) 11/09/16 09:55 Plt Count 279 xk/uL (130-400) 11/09/16 09:55 MPV 9.0 fL (7.4-10.4) 11/09/16 09:55 Neut % (Auto) 78.3 % (45-76) H 11/09/16 09:55 Lymph % (Auto) 9.6 % (17-44) L 11/09/16 09:55 [place] % (Auto) 6.7 % (3-10) 11/09/16 09:55 Eos % (Auto) 4.5 % (0-5) 11/09/16 09:55 Baso % (Auto) 0.9 % (0-2) 11/09/16 09:55 Absolute Neuts (auto) 6.71 xk/uL (1.7-8.2) 11/09/16 09:55 Absolute Lymphs (auto) 0.77 xk/uL (0.65-4.75) 11/09/16 09:55 PT 12.4 SEC (9.2-11.2) H 11/09/16 09:55 INR 1.2 11/09/16 09:55 APTT 28.9 SEC (22-35) 11/09/16 09:55 Sodium 141 mEq/L (137-146) 11/09/16 09:55 Potassium 4.0 mEq/L (3.5-5.1) 11/09/16 09:55 Chloride 103 mEq/L (98-107) 11/09/16 09:55 Carbon Dioxide 30 mMOL/L (22-33) 11/09/16 09:55 Anion Gap 12 mEq/L (8-16) 11/09/16 09:55 BUN 35 MG/DL (9-20) H 11/09/16 09:55 Creatinine 1.00 MG/DL (0.66-1.25) 11/09/16 09:55 Estimated GFR (MDRD) > 60 mL/min (>=60) 11/09/16 09:55 Glucose 167 MG/DL (70-99) H 11/09/16 09:55 Calculated Osmolality 283 MOs/Kg (270-290) 11/09/16 09:55 Calcium 8.8 MG/DL (8.4-10.2) 11/09/16 09:55 Corrected Calcium 9.1 MG/DL (8.4-10.2) 11/09/16 09:55 Total Bilirubin 0.7 MG/DL (0.2-1.3) 11/09/16 09:55 AST 28 IU/L (17-59) 11/09/16 09:55 ALT 37 IU/L (21-72) 11/09/16 09:55 Alkaline Phosphatase 63 IU/L (50-160) 11/09/16 09:55 Total Protein 6.9 G/DL (6.3-8.2) 11/09/16 09:55 Albumin 3.7 G/DL (3.5-5.0) 11/09/16 09:55 Urine Color Yellow 11/09/16 09:55 Urine Clarity Cldy 11/09/16 09:55 Urine pH 5.0 (5.0-8.0) 11/09/16 09:55 Ur Specific [place] 1.020 (1.003-1.035) 11/09/16 09:55 Urine Protein 2+ (NEG/TRACE) H 11/09/16 09:55 Urine Glucose (UA) Neg (NEGATIVE) 11/09/16 09:55 Urine Ketones Neg (NEGATIVE) 11/09/16 09:55 Urine Occult Blood 3+ (NEG/TRACE) H 11/09/16 09:55 Urine Nitrite Neg (NEGATIVE) 11/09/16 09:55 Urine Bilirubin Neg (NEGATIVE) 11/09/16 09:55 Urine Urobilinogen 0.2 MG/DL (0-1) 11/09/16 09:55 Ur Leukocyte Esterase Neg (NEGATIVE) 11/09/16 09:55 Urine RBC Tntc (0-2) H 11/09/16 09:55 Urine WBC 10-20 (0-2) H 11/09/16 09:55 Ur Epithelial Cells Occ 11/09/16 09:55 Urine Bacteria Few (NEG/FEW) 11/09/16 09:55 Urine Mucus Occ (NEG/OCC) 11/09/16 09:55 Lab Results 11/09/16 11/09/16 11/09/16 09:55 09:55 09:55 WBC 8.6 RBC 4.20 L Hgb 13.0 L D Hct 38.5 L MCV 92 MCH 30.9 MCHC 33.7 RDW 13.1 Plt Count 279 MPV 9.0 Neut % (Auto) 78.3 H Lymph % (Auto) 9.6 L [place] % (Auto) 6.7 Eos % (Auto) 4.5 Baso % (Auto) 0.9 Absolute Neuts (auto) 6.71 Absolute Lymphs (auto) 0.77 PT 12.4 H INR 1.2 APTT 28.9 Sodium Potassium Chloride Carbon Dioxide Anion Gap BUN Creatinine Estimated GFR (MDRD) Glucose Calculated Osmolality Calcium Corrected Calcium Total Bilirubin AST ALT Alkaline Phosphatase Total Protein Albumin Urine Color Yellow Urine Clarity Cldy Urine pH 5.0 Ur Specific [place] 1.020 Urine Protein 2+ H Urine Glucose (UA) Neg Urine Ketones Neg Urine Occult Blood 3+ H Urine Nitrite Neg Urine Bilirubin Neg Urine Urobilinogen 0.2 Ur Leukocyte Esterase Neg Urine RBC Tntc H Urine WBC 10-20 H Ur Epithelial Cells Occ Urine Bacteria Few Urine Mucus Occ 11/09/16 09:55 WBC RBC Hgb Hct MCV MCH MCHC RDW Plt Count MPV Neut % (Auto) Lymph % (Auto) [place] % (Auto) Eos % (Auto) Baso % (Auto) Absolute Neuts (auto) Absolute Lymphs (auto) PT INR APTT Sodium 141 Potassium 4.0 Chloride 103 Carbon Dioxide 30 Anion Gap 12 BUN 35 H Creatinine 1.00 Estimated GFR (MDRD) > 60 Glucose 167 H Calculated Osmolality 283 Calcium 8.8 Corrected Calcium 9.1 Total Bilirubin 0.7 AST 28 ALT 37 Alkaline Phosphatase 63 Total Protein 6.9 Albumin 3.7 Urine Color Urine Clarity Urine pH Ur Specific [place] Urine Protein Urine Glucose (UA) Urine Ketones Urine Occult Blood Urine Nitrite Urine Bilirubin Urine Urobilinogen Ur Leukocyte Esterase Urine RBC Urine WBC Ur Epithelial Cells Urine Bacteria Urine Mucus <Alexandra Valenzuela N - Last Filed: 11/09/16 13:07> - Differential Diagnosis Other (HEMATURIA SECONDARY TO ANTICOAGULANTS), Urolithiasis, UTI - Results 11/09/16 09:55 11/09/16 09:55 WBC 8.6 xk/uL (3.8-10.8) 11/09/16 09:55 RBC 4.20 xM/uL (4.70-6.10) L 11/09/16 09:55 Hgb 13.0 g/dL (14.0-18.0) L D 11/09/16 09:55 Hct 38.5 % (42-52) L 11/09/16 09:55 MCV 92 fL (80-94) 11/09/16 09:55 MCH 30.9 pg (27-32) 11/09/16 09:55 MCHC 33.7 g/dl (33-36) 11/09/16 09:55 RDW 13.1 % (11.5-14.5) 11/09/16 09:55 Plt Count 279 xk/uL (130-400) 11/09/16 09:55 MPV 9.0 fL (7.4-10.4) 11/09/16 09:55 Neut % (Auto) 78.3 % (45-76) H 11/09/16 09:55 Lymph % (Auto) 9.6 % (17-44) L 11/09/16 09:55 [place] % (Auto) 6.7 % (3-10) 11/09/16 09:55 Eos % (Auto) 4.5 % (0-5) 11/09/16 09:55 Baso % (Auto) 0.9 % (0-2) 11/09/16 09:55 Absolute Neuts (auto) 6.71 xk/uL (1.7-8.2) 11/09/16 09:55 Absolute Lymphs (auto) 0.77 xk/uL (0.65-4.75) 11/09/16 09:55 PT 12.4 SEC (9.2-11.2) H 11/09/16 09:55 INR 1.2 11/09/16 09:55 APTT 28.9 SEC (22-35) 11/09/16 09:55 Sodium 141 mEq/L (137-146) 11/09/16 09:55 Potassium 4.0 mEq/L (3.5-5.1) 11/09/16 09:55 Chloride 103 mEq/L (98-107) 11/09/16 09:55 Carbon Dioxide 30 mMOL/L (22-33) 11/09/16 09:55 Anion Gap 12 mEq/L (8-16) 11/09/16 09:55 BUN 35 MG/DL (9-20) H 11/09/16 09:55 Creatinine 1.00 MG/DL (0.66-1.25) 11/09/16 09:55 Estimated GFR (MDRD) > 60 mL/min (>=60) 11/09/16 09:55 Glucose 167 MG/DL (70-99) H 11/09/16 09:55 Calculated Osmolality 283 MOs/Kg (270-290) 11/09/16 09:55 Calcium 8.8 MG/DL (8.4-10.2) 11/09/16 09:55 Corrected Calcium 9.1 MG/DL (8.4-10.2) 11/09/16 09:55 Total Bilirubin 0.7 MG/DL (0.2-1.3) 11/09/16 09:55 AST 28 IU/L (17-59) 11/09/16 09:55 ALT 37 IU/L (21-72) 11/09/16 09:55 Alkaline Phosphatase 63 IU/L (50-160) 11/09/16 09:55 Total Protein 6.9 G/DL (6.3-8.2) 11/09/16 09:55 Albumin 3.7 G/DL (3.5-5.0) 11/09/16 09:55 Urine Color Yellow 11/09/16 09:55 Urine Clarity Cldy 11/09/16 09:55 Urine pH 5.0 (5.0-8.0) 11/09/16 09:55 Ur Specific [place] 1.020 (1.003-1.035) 11/09/16 09:55 Urine Protein 2+ (NEG/TRACE) H 11/09/16 09:55 Urine Glucose (UA) Neg (NEGATIVE) 11/09/16 09:55 Urine Ketones Neg (NEGATIVE) 11/09/16 09:55 Urine Occult Blood 3+ (NEG/TRACE) H 11/09/16 09:55 Urine Nitrite Neg (NEGATIVE) 11/09/16 09:55 Urine Bilirubin Neg (NEGATIVE) 11/09/16 09:55 Urine Urobilinogen 0.2 MG/DL (0-1) 11/09/16 09:55 Ur Leukocyte Esterase Neg (NEGATIVE) 11/09/16 09:55 Urine RBC Tntc (0-2) H 11/09/16 09:55 Urine WBC 10-20 (0-2) H 11/09/16 09:55 Ur Epithelial Cells Occ 11/09/16 09:55 Urine Bacteria Few (NEG/FEW) 11/09/16 09:55 Urine Mucus Occ (NEG/OCC) 11/09/16 09:55 Lab Results 11/09/16 11/09/16 11/09/16 09:55 09:55 09:55 WBC 8.6 RBC 4.20 L Hgb 13.0 L D Hct 38.5 L MCV 92 MCH 30.9 MCHC 33.7 RDW 13.1 Plt Count 279 MPV 9.0 Neut % (Auto) 78.3 H Lymph % (Auto) 9.6 L [place] % (Auto) 6.7 Eos % (Auto) 4.5 Baso % (Auto) 0.9 Absolute Neuts (auto) 6.71 Absolute Lymphs (auto) 0.77 PT 12.4 H INR 1.2 APTT 28.9 Sodium Potassium Chloride Carbon Dioxide Anion Gap BUN Creatinine Estimated GFR (MDRD) Glucose Calculated Osmolality Calcium Corrected Calcium Total Bilirubin AST ALT Alkaline Phosphatase Total Protein Albumin Urine Color Yellow Urine Clarity Cldy Urine pH 5.0 Ur Specific [place] 1.020 Urine Protein 2+ H Urine Glucose (UA) Neg Urine Ketones Neg Urine Occult Blood 3+ H Urine Nitrite Neg Urine Bilirubin Neg Urine Urobilinogen 0.2 Ur Leukocyte Esterase Neg Urine RBC Tntc H Urine WBC 10-20 H Ur Epithelial Cells Occ Urine Bacteria Few Urine Mucus Occ 11/09/16 09:55 WBC RBC Hgb Hct MCV MCH MCHC RDW Plt Count MPV Neut % (Auto) Lymph % (Auto) [place] % (Auto) Eos % (Auto) Baso % (Auto) Absolute Neuts (auto) Absolute Lymphs (auto) PT INR APTT Sodium 141 Potassium 4.0 Chloride 103 Carbon Dioxide 30 Anion Gap 12 BUN 35 H Creatinine 1.00 Estimated GFR (MDRD) > 60 Glucose 167 H Calculated Osmolality 283 Calcium 8.8 Corrected Calcium 9.1 Total Bilirubin 0.7 AST 28 ALT 37 Alkaline Phosphatase 63 Total Protein 6.9 Albumin 3.7 Urine Color Urine Clarity Urine pH Ur Specific [place] Urine Protein Urine Glucose (UA) Urine Ketones Urine Occult Blood Urine Nitrite Urine Bilirubin Urine Urobilinogen Ur Leukocyte Esterase Urine RBC Urine WBC Ur Epithelial Cells Urine Bacteria Urine Mucus - EKG EKG #1 EKG Time: 13:16 -: Yes EKG interpreted by me Rate: bpm: 70 [place]: Normal Rhythm: Other (AFLUTTER) Block: RBBB Hypertrophy: None ST: Normal - Diagnostic Imaging CXR Image interpreted by: Radiologist IMPRESSION: 1. Layering moderate bilateral pleural effusions with passive atelectasis. 2. Atherosclerosis. - Additional Information DISCUSSED WITH DR. VALENZUELA AND WE AGREE PT MAY STOP ELIQUIS AND FOLLOW UP WITH PCP IN 2-3 DAYS. <Jessica Larkin - Last Filed: 11/09/16 13:28> - Departure Education/Counseling Given To: Patient, Family Member Education/Counseling Given Regarding: Diagnosis, Treatment, Prognosis <Alexandra Valenzuela - Last Filed: 11/09/16 13:07> Decision Time to Discharge: 13:28 - Departure Disposition: Home <Jessica Larkin - Last Filed: 11/09/16 13:28> - Departure Condition: Stable Final Diagnosis: ANTICOAGULATION ADVERSE EFFECT, Gross hematuria Instructions: Acute Hematuria (ED) Referrals: Vicente Medrano MD [Staff Physician] - One Week Additional Instructions: STOP ANTICOAGULATION (ELIQUIS). RETURN FOR WORSE OR DIFFERENT SYMPTOMS.
--- NOTE | 2016-11-09 12:02 | DIRPT ---
CLINICAL DATA: Shortness of breath. Recent hematuria. Congestive heart failure. EXAM: PORTABLE CHEST 1 VIEW COMPARISON: 11/07/2016 FINDINGS: Layering bilateral pleural effusions similar to recent chest CT, with associated passive atelectasis. Cardiothoracic index 54% which is within normal limits on AP radiography. Atherosclerotic aortic arch. Prior CABG. Suspected small calcified granuloma in the right upper lobe. No overt edema. IMPRESSION: 1. Layering moderate bilateral pleural effusions with passive atelectasis. 2. Atherosclerosis. Electronically Signed By: Paul Medina M.D. On: 11/09/2016 11:59
[2016-11-09 13:20] VITALS: BP 116/55; PULSE 70
== END 2016-11-09 13:40 | disposition home or self-care (01) ==
LOC: ED 09:41
DX: R31.0 Gross hematuria (principal); T45.515A Adverse effect of anticoagulants, initial encounter; Y92.009 Unspecified place in unspecified non-institutional (private) residence as the place of occurrence of the external cause
CPT/HCPCS: 36415; 71010; 80053; 81001; 82270; 85025; 85610; 85730; 87086; 93005; 99282

== ENCOUNTER 2016-11-15 10:01 | Emergency (ER) | payer MEDICARE, BC ==
[2016-11-15 10:12] VITALS: TEMP 97.5; BMI 25.9
--- NOTE | 2016-11-15 10:18 | EDPRACDOC ---
- General Information Chief Complaint: Dyspnea/Resp distress Stated Complaint: HYPERTENSION/ COUGH Time Seen by Provider: 11/15/16 10:17 Information Source: Patient, Family Mode Of Arrival: Car Home Medications: Home Medications Lisinopril [Zestril] 20 mg PO BID 02/05/13 Nitroglycerin [Nitrostat] 0.3 mg SL Q5MX3 PRN 02/05/13 Omeprazole [Prilosec] 20 mg PO BID 02/05/13 Simvastatin [Zocor] 80 mg PO QHS 02/05/13 Isosorbide Mononitrate [Isosorbide Mononitrate ER] 60 mg PO QHS 05/25/16 Olopatadine HCl [Pataday] 1 drop OU DAILY 05/25/16 Fluticasone Propionate [Flonase] 1 spray SANDRA DAILY 11/06/16 Carvedilol [Coreg] 6.25 mg PO BID #60 tablet 11/08/16 Probiotic Blend [Rosa Q] 1 tab PO BIDLS #30 tablet 11/08/16 Apixaban [Eliquis] 5 mg PO BID 11/15/16 Allergies/Adverse Reactions: Allergies Allergy/AdvReac Type Severity Reaction Status Date / Time No Known Allergies Allergy Verified 11/15/16 10:11 - History of Present Illness HPI: COUGH, SOB, ADMITTED 11/06 FOR PNA. RECENTLY THIS MONTH ADMITTED FOR PNA, CHF. DRINKING A LOT OF FLUID FOR A RENAL STONE PER SON. COUGH SINCE YESTERDAY , NONPRODUCTIVE. NO FEVER. ON HOME OXYGEN 2 LITERS SINCE LAST WEEK. H/O AFLUTTER. 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 Denies: Diabetes, Cancer, Stroke - Social Medical History Smoking Status: Never smoker Social History: Denies: Substance Use Disorder - Physical Exam Constitutional: Alert (Awake), No apparent distress Oriented to: Time, Person, Place Last recorded Vital Signs: Last Vital Signs Temp 97.5 F 11/15/16 10:08 Pulse 72 11/15/16 10:08 Resp 20 11/15/16 10:08 BP 178/74 11/15/16 10:08 Pulse Ox 97 11/15/16 10:08 Oxygen Pulse Oxygen Saturation 97 O2 Device Oxygen Flow Rate 2 Fraction of Inspired Oxygen ( FIO2) - HEENT Head: Normal ( normocephalic) Eye Exam: Normal (PERRL, EOMI, Sclera white) Oropharynx: Normal (Pharynx:Moist without exudate,Gums-no swelling) Nose: No Symptoms Reported (septum midline) Neck: Normal (FROM, trachea at midline) - Respiratory/Cardiovascular Respiratory: Rales (B/L BASES) Cardiovascular: Normal (RRR without murmur, gallop or rub) - GI Auscultation: Normal (NABS) Palpation: Normal (Soft,No rebound or guarding, non distended) Tenderness: Non tender Mike's Sign: Negative - Musculoskeletal Back: Normal (Non-Tender) Extremities: Normal (Normal tone, Pulses 2+ No cyanosis or edema, FROM) - Integumentary Skin: Normal, Warm, Dry Lymphatics: Normal (no adenopathy) - Neurologic Memory Impaired: Normal Motor Function: Normal (Normal tone, Pulses 2+ No cyanosis or edema, FROM) Cranial Nerve: Normal (CN II-X11 intact sensation, strength 5/5) Cerebellar: Normal Mood Description: Normal Perception: Normal ED SOB MDM - Results Result Diagrams: 11/15/16 10:26 11/15/16 10:26 - EKG EKG #1 EKG Time: 10:26 -: Yes EKG interpreted by me Rate: bpm: 68 [place]: Normal Rhythm: Aflutter Block: RBBB Hypertrophy: None Comments: ABNORMAL EKG Comparison: 11/09/16 (NO CHANGE) - Departure Yes I personally saw and evaluated the patient. Disposition: Home Condition: Stable Final Diagnosis: Acute bronchitis Instructions: Upper Respiratory Infection (ED) Education/Counseling Given To: Patient, Family Member Education/Counseling Given Regarding: Diagnosis Referrals: Christopher Ramos MD [Primary Care Provider] - 11/16/16
[2016-11-15 10:33] LABS: AUTOMATED BASOPHIL 1.1 % (0-2); AUTOMATED EOSINOPHIL 1.3 % (0-5); AUTOMATED LYMPH 9.6 % (17-44); AUTOMATED MONOCYTE 6.4 % (3-10); AUTOMATED NEUTROPHIL 81.6 % (45-76); MPV 9.7 fL (7.4-10.4)
[2016-11-15 10:35] VITALS: PULSE 67
[2016-11-15 10:49] LABS: PARTIAL THROMB. TIME 29.2 SEC (22-35); PT-INR 1.2
[2016-11-15 10:52] LABS: BLOOD UREA NITROGEN 21 MG/DL (9-20); CALC CORRECTED 9.2 MG/DL (8.4-10.2); CALCIUM 8.7 MG/DL (8.4-10.2); CALCULATED OSMOLALITY 275 MOs/Kg (270-290); CHLORIDE 104 mEq/L (98-107); GLUCOSE 155 MG/DL (70-99); SODIUM LEVEL 140 mEq/L (137-146); TOTAL PROTEIN 7.1 G/DL (6.3-8.2)
--- NOTE | 2016-11-15 11:10 | DIRPT ---
CLINICAL DATA: Cough and shortness of breath EXAM: PORTABLE CHEST - 1 VIEW COMPARISON: 11/09/2016 FINDINGS: Postsurgical changes are again seen. Cardiac shadow is mildly prominent. Mild bibasilar atelectasis is again noted. Small pleural effusions are again seen. This is stable from the prior exam. No new focal abnormality is seen. IMPRESSION: No change from the prior study. Electronically Signed By: Jose Shea M.D. On: 11/15/2016 11:07
[2016-11-15 11:46] VITALS: BP 155/72
== END 2016-11-15 12:12 | disposition home or self-care (01) ==
LOC: ED 10:01
DX: J20.9 Acute bronchitis, unspecified (principal)
CPT/HCPCS: 36415; 71010; 80053; 83880; 84484; 85025; 85610; 85730; 93005; 99283